=== PATIENT | male | born 1985 | race Caucasian/White ===

== ENCOUNTER 2022-02-05 10:54 | Emergency (ER) | payer OTHER ==
[~2022-02-05] VITALS: Ht 193 cm; Wt 97.7 kg
[2022-02-05 11:36] LABS: GLUCOSE,POINT OF CARE 152 MG/DL (70-110)
[2022-02-05 11:56] VITALS: BP 146/97
== END 2022-02-05 12:01 | disposition home or self-care (01) ==
LOC: EMS 10:56
DX: F43.0 Acute stress reaction (principal); E11.9 Type 2 diabetes mellitus without complications; Z98.890 Other specified postprocedural states
CPT/HCPCS: 82962; 93005; 99284